=== PATIENT | female | born 1985 ===

== ENCOUNTER → 2017-07-17 | Outpatient (CLI) | payer OTHER | LOC: BRMIMAGING 12:38 | PROVIDERS: ATTEND Advanced Practice Midwife | DX: O26.851 Spotting complicating pregnancy, first trimester (principal); Z3A.01 Less than 8 weeks gestation of pregnancy ==

== ENCOUNTER → 2017-07-31 | Outpatient (CLI) | payer OTHER | LOC: FIMAGING 13:46 | PROVIDERS: ATTEND Advanced Practice Midwife | DX: Z34.81 Encounter for supervision of other normal pregnancy, first trimester (principal); Z3A.09 9 weeks gestation of pregnancy ==

== ENCOUNTER → 2017-08-24 | Outpatient (CLI) | payer OTHER | LOC: FIMAGING 11:58 | PROVIDERS: ATTEND Advanced Practice Midwife | DX: O34.11 Maternal care for benign tumor of corpus uteri, first trimester (principal); Z3A.11 11 weeks gestation of pregnancy ==

== ENCOUNTER → 2017-10-26 | Outpatient (CLI) | payer OTHER | LOC: FIMAGING 10:26 | PROVIDERS: ATTEND Advanced Practice Midwife | DX: O09.292 Supervision of pregnancy with other poor reproductive or obstetric history, second trimester (principal); O34.12 Maternal care for benign tumor of corpus uteri, second trimester; Z3A.20 20 weeks gestation of pregnancy ==

== ENCOUNTER → 2018-01-09 | Outpatient (CLI) | payer OTHER | LOC: FIMAGING 13:19 | PROVIDERS: ATTEND Advanced Practice Midwife | DX: O36.5930 Maternal care for other known or suspected poor fetal growth, third trimester, not applicable or unspecified (principal); O34.13 Maternal care for benign tumor of corpus uteri, third trimester; Z3A.31 31 weeks gestation of pregnancy ==

== ENCOUNTER → 2018-01-16 | Outpatient (CLI) | payer OTHER | LOC: FIMAGING 12:40 | PROVIDERS: ATTEND Advanced Practice Midwife | DX: O36.5930 Maternal care for other known or suspected poor fetal growth, third trimester, not applicable or unspecified (principal); Z3A.32 32 weeks gestation of pregnancy ==

== ENCOUNTER → 2018-01-25 | Outpatient (CLI) | payer OTHER | LOC: FIMAGING 12:48 | PROVIDERS: ATTEND Advanced Practice Midwife | DX: O36.5930 Maternal care for other known or suspected poor fetal growth, third trimester, not applicable or unspecified (principal); O35.8XX0 Maternal care for other (suspected) fetal abnormality and damage, not applicable or unspecified; Z3A.33 33 weeks gestation of pregnancy ==

== ENCOUNTER → 2018-02-01 | Outpatient (CLI) | payer OTHER | LOC: FIMAGING 12:19 | PROVIDERS: ATTEND Advanced Practice Midwife | DX: O36.5930 Maternal care for other known or suspected poor fetal growth, third trimester, not applicable or unspecified (principal); Z3A.34 34 weeks gestation of pregnancy ==

== ENCOUNTER → 2018-02-08 | Outpatient (CLI) | payer OTHER | LOC: FIMAGING 12:31 | PROVIDERS: ATTEND Advanced Practice Midwife | DX: O36.5930 Maternal care for other known or suspected poor fetal growth, third trimester, not applicable or unspecified (principal); Z3A.35 35 weeks gestation of pregnancy ==

== ENCOUNTER 2018-02-12 12:37 | Observation (INO) | payer OTHER ==
--- NOTE | 2018-02-12 14:27 | SOAPPROG ---
SOAP Progress Note Assessment/Plan: Assessment: 32 yo at 36w1d with a fetus with known IUGR at 5%ile, with a reassuring BPP of 10/10 here in L&D. Plan: DC home, labor and movement precautions reviewed. To see MFM as planned tomorrow, with a plan for a 37 week induction of labor. 02/12/18 14:22 02/12/18 14:28 Subjective: Pt was sent over from the office for a BPP, as the NST was not reactive. Pt feeling well, doesn't feel great movement all of the time, but has felt good movement since resting here in L&D. No VB, no LOF. Has an occasional contraction. Objective: gen - pleasant, NAD BPP done - active fetus, completed in 7 min 05/30 and NST here reviewed - 130 reactive. - Time Spent With Patient Time Spent With Patient: 15 - Pending Discharge Pending Discharge Within 24 Hours: No Pending Discharge Within 48 Hours: No ICD10 Worksheet Patient Problems: Problems Problem Status Onset IUGR, Acute IUGR, Acute - ICD10 Problem Qualifiers (1) IUGR, (2) IUGR,
== END 2018-02-12 14:25 | disposition home or self-care (01) ==
LOC: FLD 12:37
PROVIDERS: ADMIT Hospitalist; ATTEND Hospitalist
DX: O36.5930 Maternal care for other known or suspected poor fetal growth, third trimester, not applicable or unspecified (principal); Z3A.36 36 weeks gestation of pregnancy
CPT/HCPCS: 59025; 76818; G0378

== ENCOUNTER → 2018-02-13 | Outpatient (CLI) | payer OTHER | LOC: FIMAGING 14:58 | PROVIDERS: ATTEND Advanced Practice Midwife | DX: O36.5930 Maternal care for other known or suspected poor fetal growth, third trimester, not applicable or unspecified (principal); Z3A.36 36 weeks gestation of pregnancy ==

== ENCOUNTER 2018-02-18 15:48 | Inpatient (IN) | payer OTHER ==
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
[2018-02-18] MEDS ORDERED: OLIVE OIL 118 ML BTL MISC PRN (16:22)
[2018-02-18] MEDS ORDERED: MISOPROSTOL 200 MCG TAB PR PRN (16:22)
[2018-02-18] MEDS ORDERED: EPSOM SALT 454 GM TP PRN (16:22)
[2018-02-18] MEDS ORDERED: OXYTOCIN/RINGERS LACTATE 1,000 ML IV PRN (16:22)
[2018-02-18] MEDS ORDERED: TERBUTALINE SULFATE 1 MG/ML VIAL IV PRN (16:22)
[2018-02-18] MEDS ORDERED: LR 1,000 ML IV PRN (16:22)
[2018-02-18] MEDS ORDERED: LIDOCAINE 1% 300 MG/30 ML SDV SC PRN (16:22)
[2018-02-18] MEDS ORDERED: ACETAMINOPHEN 500 MG TAB PO PRN (17:45)
[2018-02-18] MEDS ORDERED: ZOLPIDEM TARTRATE 5 MG TAB PO PRN (17:45)
[2018-02-18] MEDS ORDERED: LR 500 ML IV PRN (17:46)
[2018-02-18] MEDS ORDERED: OXYTOCIN/RINGERS LACTATE 500 ML IV SCH (18:00)
[2018-02-18] MEDS ORDERED: TERBUTALINE SULFATE 1 MG/ML VIAL ONE (18:05)
[2018-02-18] MEDS ORDERED: OXYTOCIN 10 UNIT/ML VIAL ONE (18:05)
[2018-02-18] MEDS ORDERED: OLIVE OIL 118 ML BTL ONE (18:05)
[2018-02-18] MEDS ORDERED: LIDOCAINE 1% 300 MG/30 ML SDV ONE (18:05)
[2018-02-18] MEDS ORDERED: MISOPROSTOL 200 MCG TAB ONE (18:05)
[2018-02-18] MEDS ORDERED: AMMONIA AROMATIC 1 EACH AMP IH ONE (18:05)
[2018-02-18 22:19] LABS: PLATELET COUNT 187 10^3/uL (150-400)
[2018-02-19] MEDS ORDERED: OXYTOCIN/RINGERS LACTATE 500 ML IV SCH (06:00)
[2018-02-19] MEDS ORDERED: OXYTOCIN/NS *STANDARD DOSE PROTOCOL IV SCH (06:00)
[2018-02-19] MEDS: CLINDAMYCIN 900 MG/DEXTROSE 50 ML IV SCH ×2 (06:23→13:07)
--- NOTE | 2018-02-19 09:41 | OBPROG ---
Labor Progress Note Assessment/Plan: Assessment: Plan: Subjective/Intrapartum Course: 02/19/18 09:38 Pt rested overnight and is now feeling pelvic, vaginal pressure. She is prepared for her IOL today, and knows about pitocin and AROM. Objective: 02/18/18 21:55 Patient ABO/Rh O POSITIVE 02/18/18 21:55 - SVE Dilation (cm): 4 Effacement (%): 90 Station: -2 Membranes: Intact - Contraction Pattern Assessment Current Contraction Pattern: Irregular - FHR Assessment Alvarado FHR (bpm): 140 FHR Pattern Variability: Moderate FHR Category: 1 - AP Antepartum Course: 02/19/18 09:43 PNC @ [facility] transfer @ 35 weeks secondary to IUGR with elevated dopplers. Recommended IOL @ 37 weeks, rosado placed 02/18 and pitocin this am, H/ o asthma, H/o post- depression, elevated, BMI, GBS+ and PCN allergic, treating with Clindamycin. CNM Assessment - Uterine Assessment Contraction Strength: Mild Uterine Resting Tone: Palpates Soft Between Uterine Contractions Oxytocin Orders Assessment - Pre-Induction/Augmentation Assessment Indication: IUGR with elevated dopplers Presentation: Vertex Gestational Age: 37 week(s) and 0 day(s) Gestational Age Determined By: Ultrasound, Last Menstral Period Estimated Weight: Less than 2500g Membrane Status: Intact Current Contraction Pattern: Irregular - Heart Rate Pattern Alvarado FHR Baseline (bpm): 140 FHR Category: 1 FHR Pattern Variability: Moderate FHR Accelerations: Present - Hernandez's Score Dilation: 3-4cm Effacement: 80+ Station: -2 Cervix: Medium Cervix Position: Posterior Hernandez Score Total: 7 - Induction/Augmentation Consent Risks/Benefits of Procedure Reviewed/Pt Agrees to Proceed: Yes ICD10 Worksheet Patient Problems: Problems Problem Status Onset IUGR, Acute IUGR, Acute
[2018-02-19] MEDS ORDERED: ACETAMINOPHEN 325 MG TAB PO PRN (14:08)
[2018-02-19] MEDS ORDERED: HYDROCORTISONE 0.5% CREAM TP PRN (14:08)
[2018-02-19] MEDS ORDERED: SIMETHICONE 80 MG TAB CHEW PO PRN (14:08)
--- NOTE | 2018-02-19 14:12 | OBDEL ---
Info Type: Vaginal Presentation at Delivery: Vertex L&D Analgesia/Anesthesia Type: Nitrous GBS+: Yes Antibiotic Used for + GBS: Clindamycin Intrapartum Medications: Generic Name Dose Route Start Last Admin Trade Name Freq PRN Reason Stop Dose Admin Clindamycin Phosphate/Dextrose 50 mls @ 100 mls/hr 02/19/18 06:00 02/19/18 13 :07 Cleocin 900 Mg (Premix) IV 03/21/18 05:59 50 mls Q8HRS JEAN PAUL Administration Protocol Lactated Ringer's 1,000 mls @ 0 mls/hr 02/18/18 16:22 02/19/18 06:23 Lr IV 02/19/18 16:21 1,000 mls PRN PRN Administration SEE PROTOCOL CONDITIONS Protocol Per Protocol Oxytocin/Lactated Ringer's 500 mls @ 0 mls/hr 02/18/18 18:00 02/19/18 06:23 Pitocin 30 Units/Lr (Premix) IV 08/17/18 17:59 500 mls CONT JEAN PAUL Administration Protocol Per Protocol Zolpidem Tartrate 5 mg 02/18/18 17:45 02/18/18 22:40 Ambien PO 08/17/18 17:44 5 mg HS PRN Administration Sleep/Insomnia - Care Provider Local Flatbed Driver/FLATWORK CATCHER: Patti Brock - Hospital Course Intrapartum: 02/19/18 09:38 Pt rested overnight and is now feeling pelvic, vaginal pressure. She is prepared for her IOL today, and knows about pitocin and AROM. Indications for Delivery: Growth Restriction w/Abnormal Doppler studies Vaginal Delivery - Delivery Provider Delivery Physician/CNM: Mallory Kwong Proctoring Provider: Keena Torres - Labor and Delivery Onset of Contractions Date: 02/19/18 Onset of Contractions Time: 09:00 Onset of Contractions Type: Induced Rupture of Membranes Date: 02/19/18 Rupture of Membranes Time: 12:45 Rupture of Membranes Type: Spontaneous Amniotic Fluid Color: Bloody Dilation Complete Date: 02/19/18 Dilation Complete Time: 13:39 Placenta Delivery Date: 02/19/18 Placenta Delivery Time: 13:50 Total Hours of Labor: 4 Non-surgical Procedures: Amniotomy (forebag) Laceration: Other (Specify) (none) Vaginal Sponge Count Correct: Yes Vaginal Needle Count Correct: Yes Vaginal Sweep Performed: Yes EBL: 700 Delivery Events: Other (Specify) (increased bleeding prior to delivery, precipitous delivery after AROM of forebag) - Medications Labor Augmentation/Induction Methods Used: Pitocin, Clarke Bulb Labor Augmentation/Induction Indication: IUGR Data CHRISTIANO: 03/11/18 Gestational Age: 37 week(s) and 1 day(s) Alvarado Delivery Date: 02/19/18 Delivery Time: 13:44 Sex of Infant: Female Score (1 Min): 8 Score (5 Min): 9 ICD10 Worksheet Patient Problems: Problems Problem Status Onset (spontaneous vaginal delivery) Acute IUGR, Acute IUGR, Acute - ICD10 Problem Qualifiers (1) (spontaneous vaginal delivery)
[2018-02-19] MEDS: IBUPROFEN 600 MG TAB PO PRN ×2 (14:35→21:26)
[2018-02-19] MEDS: METHYLERGONOVINE MAL 0.2 MG TAB PO SCH ×2 (18:04→23:45)
[2018-02-19] MEDS: HYDROCODONE/APAP 5/325 TAB PO PRN ×2 (20:22→23:47)
[2018-02-19] MEDS: DOCUSATE SODIUM 100 MG CAP PO PRN (20:22)
[2018-02-20] MEDS: IBUPROFEN 600 MG TAB PO PRN ×3 (03:41→18:05)
[2018-02-20] MEDS: HYDROCODONE/APAP 5/325 TAB PO PRN ×3 (05:51→21:24)
[2018-02-20] MEDS: METHYLERGONOVINE MAL 0.2 MG TAB PO SCH ×2 (05:51→11:51)
[2018-02-20] MEDS: FERROUS SULFATE 325 MG TAB PO SCH ×2 (09:23→20:34)
[2018-02-20] MEDS: DOCUSATE SODIUM 100 MG CAP PO PRN ×2 (09:23→21:24)
--- NOTE | 2018-02-20 09:50 | OBPP ---
Progress Note Assessment/Plan: Assessment: 32 y/o s/p at 37 weeks - IOL for IUGR, PPD #1 EBL 800 cc HCT 36 on adm/29.3 ppd #1 Plan: Routine PP care Will add ferrous sulfate bid Plan discharge tomorrow 02/20/18 09:46 Subjective/ Course: 02/20/18 09:51 Patient is tired this morning, didn't sleep well. Had some dizziness last stu, but feeling better this am. Feels like she just needs some rest. Reports lochia to be light, pain controlled with oral medication, tolerating regular diet and voiding. is going well so far. Objective: 02/20/18 05:50 Patient ABO/Rh O POSITIVE 02/18/18 21:55 Temp Pulse Resp BP Pulse Ox 36.8 C 73 18 120/68 95 02/19/18 20:17 02/19/18 20:17 02/19/18 20:17 02/19/18 20:17 02/19/18 20:17 VSS Respirations unlabored Extremities with minimal edema Lochia scant Fundus firm Nipples intact Uterine Position/Fundal Height: At Umbilicus Uterine Tone: Firm Physical Exam - Physical Exam EENT: PERRL/EOMI Respiratory: lungs clear, normal breath sounds Cardiac/Chest: regular rate, rhythm Extremities: normal range of motion Skin: normal color, warm/dry Neuro/Psych: no motor/sensory deficits, alert, normal mood/affect, oriented x 3
[2018-02-21] MEDS: IBUPROFEN 600 MG TAB PO PRN ×3 (00:31→12:17)
[2018-02-21 08:58] VITALS: BP 80/52
[2018-02-21] MEDS: DOCUSATE SODIUM 100 MG CAP PO PRN (09:35)
[2018-02-21] MEDS: FERROUS SULFATE 325 MG TAB PO SCH (09:36)
--- NOTE | 2018-02-21 14:24 | OBPP ---
Progress Note Assessment/Plan: Assessment: PPD#2 s/p after IOL for IUGR. Doing well. Anemic Hx of pp depression. Plan: DC home with RXs for Wellbutrin, ibuprofen and iron. routine pp instructions reviewed. see dc summ. 02/21/18 14:23 Subjective/ Course: 02/20/18 09:51 Patient is tired this morning, didn't sleep well. Had some dizziness last stu, but feeling better this am. Feels like she just needs some rest. Reports lochia to be light, pain controlled with oral medication, tolerating regular diet and voiding. is going well so far. 02/21/18 14:21 Doing well. Desires homegoing. Has hx of pp depression with all 3 prior deliveries. Zoloft has not worked, but did well on Wellbutrin - requests rx. No longer has an dizziness. Still fatigued but much better than yesterday. Ambulating and voiding without difficulty. going well. Objective: 02/20/18 05:50 Patient ABO/Rh O POSITIVE 02/18/18 21:55 Temp Pulse Resp BP Pulse Ox 37.1 C 60 17 80/52 L 93 02/21/18 08:00 02/21/18 08:00 02/21/18 08:00 02/21/18 08:00 02/21/18 08:00 gen - pleasant female, NAD CV - RRR chest - CTAB abd - fundus firm at u-3 ext - calves NT, no edema, marty's neg Uterine Position/Fundal Height: Umbilicus -3 Uterine Tone: Firm
--- NOTE | 2018-02-21 14:38 | OBGCSDC ---
General Delivery Information - General Info : 5 Para: 4 Abortions: 1 Type: Vaginal L&D Analgesia/Anesthesia Type: Nitrous Admission Date: 02/18/18 Labs: Patient ABO/Rh O POSITIVE 02/18/18 21:55 Hct 29.3 % (38.0-47.0) L D 02/20/18 05:50 - Hospital Course Antepartum: 02/19/18 09:43 PNC @ [facility] transfer @ 35 weeks secondary to IUGR with elevated dopplers. Recommended IOL @ 37 weeks, rosado placed 02/18 and pitocin this am, H/ o asthma, H/o post- depression, elevated, BMI, GBS+ and PCN allergic, treating with Clindamycin. Intrapartum: 02/19/18 09:38 Pt rested overnight and is now feeling pelvic, vaginal pressure. She is prepared for her IOL today, and knows about pitocin and AROM. : 02/20/18 09:51 Patient is tired this morning, didn't sleep well. Had some dizziness last stu, but feeling better this am. Feels like she just needs some rest. Reports lochia to be light, pain controlled with oral medication, tolerating regular diet and voiding. is going well so far. 02/21/18 14:21 Doing well. Desires homegoing. Has hx of pp depression with all 3 prior deliveries. Zoloft has not worked, but did well on Wellbutrin - requests rx. No longer has an dizziness. Still fatigued but much better than yesterday. Ambulating and voiding without difficulty. going well. Vaginal - Delivery Provider Delivery Physician/CNM: Mallory Kwong - Diagnosis Labor: Induced Rupture of Membranes Type: Spontaneous Amniotic Fluid Color: Bloody Laceration: Other (Specify) (none) Delivery Events: Other (Specify) (increased bleeding prior to delivery, precipitous delivery after AROM of forebag) - Procedures Non-surgical Procedures: Amniotomy (forebag) - Delivery Non-surgical Procedures: Amniotomy (forebag) EBL: 700 Data CHRISTIANO: 03/11/18 Gestational Age: 37 week(s) and 3 day(s) Alvarado Delivery Date: 02/19/18 Delivery Time: 13:44 Sex of Infant: Female Weight (gm): 2548 kg Score (1 Min): 9 Score (5 Min): 9 Discharge Information - Discharge Information Prescriptions: Ibuprofen [Motrin (*)] 600 mg PO Q6HRS PRN #60 tab PRN Reason: post , inflammation buPROPion XL [Wellbutrin 150mg XL] 150 mg PO DAILY #60 tab Ferrous Sulfate [Ferrous Sulf 325 MG (*)] 325 mg PO BID #60 tab Condition: Good Instruction/Follow Up: See Instruction Sheet, Four Weeks, Six Weeks
[2018-02-22] MEDS ORDERED: buPROPion XL 150 MG TAB PO SCH (09:00)
== END 2018-02-21 16:58 | disposition home or self-care (01) | DRG 775 ==
LOC: FLD 15:48 → FOB 02-19 17:53
PROVIDERS: ADMIT Obstetrics & Gynecology; ATTEND Obstetrics & Gynecology
PROC: 0U7C7DZ Dilation of Cervix with Intraluminal Device, Via Natural or Artificial Opening (ICD-10-PCS; 2018-02-18)
PROC: 3E033VJ Introduction of Other Hormone into Peripheral Vein, Percutaneous Approach (ICD-10-PCS; principal; 2018-02-19)
PROC: 10907ZC Drainage of Amniotic Fluid, Therapeutic from Products of Conception, Via Natural or Artificial Opening (ICD-10-PCS; principal; 2018-02-19)
PROC: 10E0XZZ Delivery of Products of Conception, External Approach (ICD-10-PCS; principal; 2018-02-19)
DX: O36.5930 Maternal care for other known or suspected poor fetal growth, third trimester, not applicable or unspecified (principal); O99.214 Obesity complicating childbirth; Z68.36 Body mass index [BMI] 36.0-36.9, adult; O31.23X0 Continuing pregnancy after intrauterine death of one fetus or more, third trimester, not applicable or unspecified; O99.820 Streptococcus B carrier state complicating pregnancy; O99.344 Other mental disorders complicating childbirth; F31.9 Bipolar disorder, unspecified; Z62.810 Personal history of physical and sexual abuse in childhood; Z3A.37 37 weeks gestation of pregnancy; Z37.0 Single live birth
CPT/HCPCS: J2590; J3105